=== PATIENT | female | born 1990 | race African-American/Black ===

== ENCOUNTER 2016-08-12 22:51 | Emergency (ER) | payer SELFPAY ==
--- NOTE | ~2016-08-12 | CR172 ---
[facility] A Service of [facility] & [facility] RADIOLOGY TEXT RESULTS PATIENT: TANIA WASHINGTON LOCATION: SED : 88 UNIT #: [id number] AGE: [address]: EFREM ISAAC PA-C SEX: F ORDER DR: [id number] [address] [address] [id number] MR#: [id number] Acc #: [id number] NAME: TANIA WASHINGTON : 1990 SEX: F STUDY DATE/TIME: 08/12/2016 23:37 UNIT: SED ROOM: STUDY DESCRIPTION: CR Knee 3 Views Lt Attending Physician: Efrem Isaac Pa-C Ordering Physician: Physician Non-Staff Primary Care Physician: Yuriy Stoddard M.D. MEDICAL IMAGING REPORT This report is preliminary unless electronic signature is present. EXAM Left knee 3 views 08/12/2016 INDICATION Pain and swelling that began 4 days ago. Injury playing basketball. TECHNIQUE 3 views. COMPARISON None. FINDINGS No acute fracture. No significant degenerative change. Equivocal trace to small joint effusion on the cross-table lateral view. IMPRESSION Equivocal trace to small joint effusion. Otherwise negative left knee. Dictated by... Kilo Novoa M.D. THIS IS AN ELECTRONICALLY VERIFIED REPORT Kilo Novoa M.D. at 08/13/2016 6:24 AM TRACIE/chayo TD: 08/13/2016 06:09 JOB #: [id number] MEDICAL IMAGING REPORT Page 1 of 1
[~2016-08-12 22:51] MED LIST: BACTRIM DS TABL1 TAB PO; FLEXERIL PO; FLEXERIL10 MG PO; FLONASE 0.05% N16 GM; IBUPROFEN PO; KETOPROFEN PO; MOTRIN100 MG PO; NO MEDICATIONS; OXYCODONE HCL5 M1 PO; PRENATAL1 TA1 PO; ROBITUSSIN COU118 M3 PO; VICODIN PO; ZITHROMAX PO
== END 2016-08-13 01:45 | disposition home or self-care (01) ==
LOC: SED 22:51
DX: S83.92XA Sprain of unspecified site of left knee, initial encounter (principal); R56.9 Unspecified convulsions; W18.30XA Fall on same level, unspecified, initial encounter; Y93.62 Activity, american flag or touch football
CPT/HCPCS: 29505; 73562; 99283